=== PATIENT | female | born 1970 ===

== ENCOUNTER 2017-07-09 13:18 | Outpatient (CLI) | payer MEDICARE ==
--- NOTE | 2017-07-09 16:06 | Mammography Report ---
BILATERAL DIGITAL AUGMENTED DIAGNOSTIC MAMMOGRAM WITH CAD: 07/09/17 13:18:00 CLINICAL: Right breast lump. Although the requisition states left, the patient says right. COMPARISON:None. FINDINGS: Bilateral MLO and CC views with and without implant displacement demonstrate mostly fatty breasts. No mass, architectural distortion or suspicious calcifications. A questionable 7 mm lymph node is identified at deep to the palpable marker at the upper outer aspect of the right implant. No other significant finding. Intact subglandular implants. Ultrasound of the right breast was performed in the area where the patient describes feeling a lump. No mass or cyst is identified. No lymph node is identified deep to the palpable marker. This may be a tortuous artery rather than a lymph node and that would explain why there is nothing identified by ultrasound. IMPRESSION: Negative mammogram and negative right breast ultrasound. BI-RADS CATEGORY: 2 -- Benign RECOMMENDATION: Clinical followup and routine mammographic screening in one year.
== END 2017-07-09 13:19 | disposition home or self-care (01) ==
LOC: SPVWC 13:18
PROVIDERS: ATTEND Family Medicine
DX: N63.0 Unspecified lump in unspecified breast (principal); N64.89 Other specified disorders of breast; Z98.82 Breast implant status
CPT/HCPCS: 76642; G0204; 77066